=== PATIENT | male | born 2005 | race Caucasian/White ===

== ENCOUNTER 2023-10-31 21:13 | Emergency (ER) | payer OTHER ==
[2023-10-31 22:02] LABS: BILIRUBIN,URINE NEGATIVE (NEGATIVE); GLUCOSE, URINE (UA) NEGATIVE (NEGATIVE); KETONES,URINE (UA) NEGATIVE (NEGATIVE); LEUKOCYTE ESTERASE, URINE NEGATIVE (NEGATIVE); NITRITE,URINE NEGATIVE (NEGATIVE); OCCULT BLOOD,URINE NEGATIVE (NEGATIVE); PROTEIN,URINE NEGATIVE (NEGATIVE); UROBILINOGEN,URINE 0.2 (NORMAL) E.U./dL (NORMAL)
[2023-10-31 22:08] LABS: BASOPHILS % (AUTO) 0.3 %; EOSINOPHILS # (AUTO) 0.1 10^3/uL (0.0-0.7); EOSINOPHILS % (AUTO) 1.3 %; HCT - HEMATOCRIT 48.2 % (42.0-52.0); HGB - HEMOGLOBIN 15.4 g/dL (14.0-18.0); LYMPHOCYTES # (AUTO) 3.2 10^3/uL (1.5-3.5); LYMPHOCYTES % (AUTO) 34.8 %; MONOCYTES # (AUTO) 0.9 10^3/uL (0.0-1.0); MONOCYTES % (AUTO) 10.1 %; NEUTROPHILS # (AUTO) 4.9 10^3/uL (1.5-6.6); NEUTROPHILS % (AUTO) 53.3 %; PLT - PLATELET COUNT 271 10^3/uL (130-450); RED BLOOD COUNT 5.13 10^6/uL (4.70-6.10); RED CELL DISTRIBUTION WIDTH 12.2 % (12.0-15.0); WHITE BLOOD COUNT 9.1 x10^3/uL (4.8-10.8)
[2023-10-31 22:10] LABS: CLARITY,URINE CLEAR (CLEAR)
[2023-10-31 22:26] LABS: ALBUMIN 4.4 g/dL (3.2-5.5); ALBUMIN/GLOBULIN RATIO 1.3 (1.0-2.2); BILIRUBIN,TOTAL 0.5 mg/dL (0.2-1.0); CALCIUM 9.6 mg/dL (8.5-10.3); CREATININE 1.1 mg/dL (0.6-1.3); POTASSIUM 3.3 mmol/L (3.5-4.5); TOTAL PROTEIN 7.7 g/dL (6.4-8.9)
--- NOTE | 2023-10-31 23:30 | ED Physician Documentation ---
History of Present Illness - Stated complaint Stated Complaint: SOA/ABD PX - Chief complaint Chief Complaint: General - History obtained from History obtained from: Patient - Additonal information Additional information: HPI from patient. Patient complains of 2 to 3 days of dyspnea, episodic rapid/irregular palpitations. He has had RUQ pain since yesterday. He denies chest pain, nausea, vomiting, diarrhea, fever. He denies history of similar symptoms. Dyspnea is worse with exertion. There are otherwise no exacerbating nor ameliorating factors for any of his symptoms. Review of Systems Constitutional: denies: Fever, Chills, Sweats Cardiac: reports: Palpitations. denies: Chest pain / pressure, Pedal edema, Calf pain Respiratory: reports: Dyspnea. denies: Cough, Wheezing GI: reports: Abdominal Pain. denies: Nausea, Vomiting, Constipation, Diarrhea : denies: Dysuria, Frequency, Hematuria PD PAST MEDICAL HISTORY - Past Medical History Past Medical History: No Cardiovascular: None Respiratory: None Neuro: None Endocrine/Autoimmune: None GI: None : None HEENT: None Psych: None Musculoskeletal: None Derm: None - Past Surgical History Past Surgical History: No - Present Medications Home Medications: Ambulatory Orders Medication Instructions Recorded Confirmed No Known Home Medications 10/31/23 10/31/23 - Allergies Allergies/Adverse Reactions: Allergies Allergy/AdvReac Type Severity Reaction Status Date / Time No Known Drug Allergies Allergy Verified 10/31/23 21:33 - Social History Does the pt smoke?: No Smoking Status: Never smoker Does the pt drink ETOH?: No Does the pt have substance abuse?: No - Immunizations Immunizations are current?: Yes - POLST Patient has POLST: No PD ED PE NORMAL - Vitals Vital signs reviewed: Yes - General General: Alert and oriented X 3, No acute distress, Well developed/nourished - Cardiac Cardiac: RRR, No murmur, No gallop, No rub - Respiratory Respiratory: No respiratory distress, Clear bilaterally - Abdomen Abdomen: Soft, Non tender - Back Back: No CVA TTP - Extremities Extremities: No edema Results - Vitals Vitals: Oxygen O2 Source Room air - EKG (time done) No standard instances EKG releavant findings:: EKG personally interpreted by author of this note. Relevant findings are: Rate: Rate (enter#) (95) Rhythm: NSR [place]: Normal Intervals: Normal [place] QRS: Normal Ischemia: Normal ST segments - Labs Labs: Laboratory Tests 10/31/23 10/31/23 10/31/23 21:30 22:04 22:04 WBC 9.1 RBC 5.13 Hgb 15.4 Hct 48.2 MCV 94.0 MCH 30.0 MCHC 32.0 RDW 12.2 Plt Count 271 MPV 9.0 Neut # (Auto) 4.9 Lymph # (Auto) 3.2 [place] # (Auto) 0.9 Eos # (Auto) 0.1 Baso # (Auto) 0.0 Absolute Nucleated RBC 0.00 Nucleated RBC % 0.0 Sodium 139 Potassium 3.3 L Chloride 102 Carbon Dioxide 29 Anion Gap 8.0 BUN 12 Creatinine 1.1 Estimated GFR (MDRD) 85 L Glucose 84 Calcium 9.6 Total Bilirubin 0.5 AST 11 ALT 11 Alkaline Phosphatase 67 Total Protein 7.7 Albumin 4.4 Globulin 3.3 Albumin/Globulin Ratio 1.3 Lipase 52 Urine Color YELLOW Urine Clarity CLEAR Urine pH 6.0 Ur Specific [place] 1.020 Urine Protein NEGATIVE Urine Glucose (UA) NEGATIVE Urine Ketones NEGATIVE Urine Occult Blood NEGATIVE Urine Nitrite NEGATIVE Urine Bilirubin NEGATIVE Urine Urobilinogen 0.2 (NORMAL) Ur Leukocyte Esterase NEGATIVE Ur Microscopic Review NOT INDICATED Urine Culture Comments NOT INDICATED PD Medical Decision Making - ED course Complexity details: reviewed results, re-evaluated patient, considered differential, d/w patient ED course: Vital signs are stable unremarkable physical exam including pulmonary auscultation and abdominal palpation. Unremarkable EKG. CBC and urinalysis are normal, and the only finding of note on the ER abdominal panel is mild hypokalemia (3.3). Is given 25 mill equivalents potassium bicarbonate orally. Results discussed with patient. Etiology of symptoms is not apparent at this time. Return precautions are discussed, and I advised him to contact his primary care provider to arrange for next available appointment for reevaluation. Departure - Departure Disposition: 01 Home, Self Care Clinical Impression: Hypokalemia Dyspnea Qualifiers: Dyspnea type: unspecified Qualified Code(s): R06.00 - Dyspnea, unspecified Condition: Good Instructions: ED Dyspnea Shortness of Breath, ED Potassium Deficiency Comments: There are no concerning or diagnostic findings on tonight's blood test. [facility] (complete blood count, which includes the white blood cell count, red blood cell count), electrolytes, kidney function test, blood sugar, liver function tests. As we discussed, the only notable abnormality was a low potassium level; this is slightly below the normal range and is an incidental finding (not nearly low enough to cause any symptoms nor cause for concern). You are given a 1-time dose of potassium orally in the emergency department prior to discharge. You should let your primary care provider know that you had a low potassium tonight (3.3); they might want to recheck this level in the coming weeks. There were no abnormalities on your urinalysis. Your lungs were clear on exam with the stethoscope, and your vital signs, including your oxygen level, were all normal. Your heart rate and rhythm were normal. The cause of your symptoms is not apparent at this time. Further testing in the emergency department is unlikely to yield a diagnosis, but you certainly should consider returning to the ER if your symptoms worsen or if you develop new/concerning signs/symptoms (such as fever, chest pain, nausea/vomiting, increasing abdominal pain, increasing shortness of breath). Forms: PCP List Discharge Date/Time: 11/01/23 00:53
[2023-11-01] MEDS: POTASSIUM BICARB 25 MEQ TABLET PO STA (00:44)
[2023-11-01 00:56] VITALS: BP 125/83; O2SAT 97
== END 2023-11-01 00:53 | disposition home or self-care (01) ==
LOC: ED 21:13
DX: E87.6 Hypokalemia (principal); R06.00 Dyspnea, unspecified
CPT/HCPCS: 36415; 80053; 81003; 83690; 85025; 93005; 99283; 99284; A9270; 81001; 87086